=== PATIENT | female | born 1990 | race African-American/Black ===

== ENCOUNTER 2018-10-08 08:26 | Emergency (ER) | payer SELFPAY ==
--- NOTE | 2018-10-08 09:13 | RAD ---
LEFT FOOT THREE VIEWS: HISTORY: Left foot and toe pain. FINDINGS: Lisfranc joint alignment is anatomic. Pes planus on the lateral view. 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 Nondisplaced oblique fracture of the proximal phalanx, big toe, extends from the proximal medial shaf t to the lateral head. No intraarticular extension is apparent. IMPRESSION: Left big toe fracture, nondisplaced. POS: K[facility]STOPHER
[2018-10-08] MEDS ORDERED: HYDROcodone/Acetaminophen 5/325 mg Tablet ONE (10:09)
== END 2018-10-08 10:17 | disposition home or self-care (01) ==
LOC: ERS 08:26
DX: S92.415A Nondisplaced fracture of proximal phalanx of left great toe, initial encounter for closed fracture (principal); W01.0XXA Fall on same level from slipping, tripping and stumbling without subsequent striking against object, initial encounter

== ENCOUNTER 2021-09-27 03:30 | Emergency (ER) | payer OTHER, SELFPAY ==
[2021-09-27 11:39] LABS: SARS-CoV-2 PCR by NAA DETECTED (NotDetected)
== END 2021-09-27 04:39 | disposition home or self-care (01) ==
LOC: ERS 03:30
DX: U07.1 COVID-19 (principal); J45.909 Unspecified asthma, uncomplicated
CPT/HCPCS: 99283; U0003; U0005